=== PATIENT | female | born 1995 | race Hispanic/Latino ===

== ENCOUNTER 2022-05-10 12:58 | Outpatient (CLI) | payer OTHER, SELFPAY ==
--- NOTE | ~2022-05-10 | US_ITS ---
EXAMINATION: US breast LT limited HISTORY: Palpable abnormality of the upper left breast TECHNIQUE: Limited left breast ultrasound was performed. FINDINGS: No suspicious cystic or solid mass is identified in the breast in the area of palpable conc elicia. Normal fibroglandular tissue is identified. IMPRESSION: No specific sonographic correlate is identified for the reported palpable abnormality of concern. Fur ther evaluation at this time should be based on clinical assessment. Continued follow-up physical exa mination is recommended. BI-RADS Category 1: Negative Reviewed, dictated and finalized at location A. BURSEMENT CONSULTANT IMPRESSION: No specific sonographic correlate is identified for the reported palpable abnor mality of concern. Further evaluation at this time should be based on clinical assessment. Continued follow-up physical examination is recommended. BI-RADS Category 1: Negative
--- NOTE | ~2022-05-10 | US_ITS ---
US pelvic complete w TV DATE: 05/10/2022 14:18 INDICATION: Secondary amenorrhea TECHNIQUE: Real-time imaging via transabdominal and transvaginal approaches COMPARISON: None FINDINGS: The uterus measures 7.1 cm vertical dimension, up to 4.7 cm AP and 6.7 cm transverse dimens ion. The central endometrial echo echo complex measures approximately 8 mm AP projection. There are numerous follicles in both ovaries, well in excess of 12 and at least the right ovary. Tiny follicles measure up to approximately 5.8 mm maximal dimension. There are measures 3.1 x 3.4 x 2.3 c m, with vascular flow. The left ovary measures 2.9 x 2.7 x 2.5 cm, with vascular flow. IMPRESSION: Numerous bilateral ovarian follicles; recommend clinical correlation to evaluate for poss ible polycystic ovaries Reviewed, dictated and finalized at [facility]. Reviewed, dictated and finalized at location B. 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
== END 2022-05-10 12:59 | disposition home or self-care (01) ==
PROVIDERS: PCP Physician Assistant; Visit Provider Physician Assistant
DX: N91.1 Secondary amenorrhea (principal); N63.20 Unspecified lump in the left breast, unspecified quadrant
CPT/HCPCS: 76642; 76830; 76856

== ENCOUNTER 2023-04-03 14:16 | Emergency (ER) | payer OTHER, SELFPAY ==
[2023-04-03 14:22] VITALS: BP 119/54; PULSE 76; RESP 18; TEMP 36.5; O2SAT 100
--- NOTE | 2023-04-03 15:22 | ED.RECABL ---
HPI - Recheck/Abnormal Lab/Rx General Chief Complaint: Recheck/Abnormal Lab/Rx Stated Complaint: dehydrated Time Seen by Provider: 04/03/23 15:21 History of Present Illness HPI narrative: Patient is a 27 year old female approximately 13 weeks here with nausea and vomiting. Patient notes that she has had vomiting since her 1st month of . She has not been taking anything at home for the nausea and vomiting. She notes she had significant nausea and vomiting throughout her other pregnancies as well. Today she spoke with her OBGYN who advised her to come into the emergency department for IV fluid hydration. She notes that she came to the emergency department because she ?can not stop vomiting ?. She follows with an Obgyn out of [place]. She does note that she has had an ultrasound at 12 weeks to confirm intrauterine . She denies any urinary symptoms. Denies any current abdominal pain. Patient is [place]ic speaking. 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 HEAD: Normocephalic, atraumatic. EYES: PERRLA and EOMI. ENT: Nares clear. Mucous membranes moist. NECK: Supple. CHEST: Clear to auscultation. No respiratory distress. HEART: Regular rate and rhythm. Normal peripheral pulses. ABDOMEN: Soft, nontender, nondistended. No CVA tenderness. EXTREMITIES: Normal range of motion. No edema. SKIN: Warm, dry, no rash. NEURO: No focal deficits. Alert and oriented x3. PSYCH: Normal mood and affect. Course Course Emergency Course: Chart review performed. Patient reportedly 13 weeks and here for N&V x3 months. She is [place]ic speaking. No prior visits in our system. Patient seen evaluated, nontoxic appearing. Suspect hyperemesis gravidarum. Will do basic lab work to ensure no electrolyte abnormalities, UA ordered. IVF and antiemetics ordered. Discussed risks versus benefits of Reglan during , understands risks, would like to continue to receive this. Lab work reviewed, CBC within normal limits, electrolytes normal, normal renal function, normal LFTs. UA negative. Will reevaluate. Patient is feeling much better. Would prefer not to do a p.o. challenge here in the emergency department. She would like to be discharged home at this time. The results of pertinent diagnostic studies and exam findings were discussed. The patient?s provisional diagnosis and plan of care were discussed with the patient and present family. The patient and/or present family expressed understanding of the diagnosis and plan. The nurse was instructed to provide written instructions and appropriate follow-up information. The patient understands their need and responsibility to obtain additional follow-up as instructed. The risks of medications administered and prescribed were discussed with the patient and family present. Vital Signs Vital signs: Vital Signs Temperature 97.7 F 04/03/23 14:22 Pulse Rate 76 04/03/23 14:22 Respiratory Rate 18 04/03/23 14:22 Blood Pressure 119/54 L 04/03/23 14:22 Pulse Oximetry 100 04/03/23 14:22 Temperature 97.7 F 04/03/23 14:22 Pulse Rate 84 04/03/23 18:13 Respiratory Rate 18 04/03/23 18:13 Blood Pressure 115/59 L 04/03/23 18:13 Pulse Oximetry 98 04/03/23 18:13 MDM - Recheck/Abnormal Lab/Rx Lab Data 04/03/23 15:47 04/03/23 15:47 Labs: Lab Results 04/03/23 04/03/23 Range/Units 15:47 16:26 WBC 7.4 (4.5-10.0) K/mm3 RBC 4.44 (4.2-5.4) M/mm3 Hgb 11.2 L (12.0-15.0) g/dL Hct 36.5 L (37.0-47.0) % MCV 82.2 (80-100) fl MCH 25.2 L (26-34) pg MCHC 30.7 L (32-36) g/dl RD
[2023-04-03] MEDS: DEXTROSE 5%/0.9% SOD CHL 1,000 ML 1000 ML IV CONT (15:47)
[2023-04-03 15:58] LABS: Basophils Percent Auto 0.4 % (0.2-1.2); Eosinophils Absolute Auto 0.1 K/mm3 (0-0.3); Eosinophils Percent Auto 1.6 % (0-4.4); Hematocrit 36.5 % (37.0-47.0); Hemoglobin 11.2 g/dL (12.0-15.0); Immature Granulocyte Absolute 0.02 K/mm3 (0.00-0.031); Immature Granulocyte Percent A 0.3 % (0-0.5); Lymphocytes Absolute Auto 2.49 K/mm3 (0.9-3.2); Lymphocytes Percent Auto 33.6 % (18.3-44.2); Mean Corpuscular HGB Conc 30.7 g/dl (32-36); Mean Corpuscular Hemoglobin 25.2 pg (26-34); Mean Corpuscular Volume 82.2 fl (80-100); Monocytes Absolute Auto 0.6 K/mm3 (0.1-0.6); Neutrophils Absolute Auto 4.2 K/mm3 (1.3-6.7); Neutrophils Percent Auto 56.1 % (45.5-73.1); Platelet Count Result 299 k/mm3 (150-375); Red Blood Count 4.44 M/mm3 (4.2-5.4); Red Cell Distribution Width 15.5 % (11.5-14.5); White Blood Count 7.4 K/mm3 (4.5-10.0)
[2023-04-03 16:04] LABS: Alanine Aminotransferase 12 U/L (6-35); Alkaline Phosphatase 85 U/L (38-126); Anion Gap 8 mmol/L (8-16); Aspartate Amino Transferase 19 U/L (14-36); Bilirubin,Total 0.3 mg/dL (0.2-1.3); Blood Urea Nitrogen 7 mg/dL (7-17); Calcium 9.2 mg/dL (8.4-10.2); Carbon Dioxide 23 mmol/L (22-30); Chloride 105 mmol/L (98-107); Estimated Glomerular Filt Rate > 60; Glucose 93 mg/dL (65-110); Magnesium 1.9 mg/dL (1.6-2.3); Potassium 3.7 mmol/L (3.4-5.0); Sodium 136 mmol/L (137-145)
[2023-04-03] MEDS: METOCLOPRAMIDE HCL INJ 10 MG/2 ML VIAL IV PUSH (16:05)
[2023-04-03] MEDS: diphenhydrAMINE HCl INJ 50 MG/ML VIAL 25 MG IV PUSH (16:05)
[2023-04-03 16:35] LABS: Appearance Urine Clear (Clear); Bilirubin Urine Negative (Negative); Blood Urine Negative (Negative); Color Urine Yellow (Yellow); Glucose Urine UA 1+ mg/dL (Negative); Ketones Urine Negative (Negative); Leukocyte Esterase Ur Negative LEU/UL (Negative); Nitrate Urine Negative (Negative); Protein Urine Negative (Negative); Specific Grav Ur 1.006 (1.001-1.035); Urobilinogen Urine 0.2 mg/dL (<2.0); pH Urine 6.5 (5.0-9.0)
[2023-04-03 16:46] LABS: Add Urine Microscopic? NO
[2023-04-03 18:13] VITALS: BP 115/59; PULSE 84; RESP 18; O2SAT 98
== END 2023-04-03 18:14 | disposition home or self-care (01) ==
PROVIDERS: Emergency Provider Student in an Organized Health Care Education/Training Program; PCP Physician Assistant
DX: O21.0 Mild hyperemesis gravidarum (principal); Z3A.13 13 weeks gestation of pregnancy
CPT/HCPCS: 36415; 80053; 81003; 83735; 85025; 96361; 96374; 96375; 99284; J1200; J2765; J7042